=== PATIENT | female | born 1975 | race Caucasian/White ===

== ENCOUNTER 2018-07-15 18:08 | Emergency (ER) | payer SELFPAY | END 2018-07-15 20:05 | disposition left against medical advice (07) | LOC: FTE 20:05 | DX: Z53.21 Procedure and treatment not carried out due to patient leaving prior to being seen by health care provider (principal) ==

== ENCOUNTER 2018-09-11 05:51 | Inpatient (IN) | payer BC ==
[2018-09-11] MEDS ORDERED: MIDAZOLAM 1 MG/ML 2 ML INJ (07:03)
[2018-09-11] MEDS ORDERED: PROPOFOL 20 ML (07:03)
[2018-09-11] MEDS ORDERED: ROCURONIUM 50 MG INJ (07:03)
[2018-09-11] MEDS ORDERED: FENTAnyl 50 MCG/ML VIAL (07:04)
[2018-09-11] MEDS ORDERED: LIDOCAINE 1% (MDV) 20 ML INJ (07:04)
[2018-09-11] MEDS ORDERED: morphine SULFATE/PF (10 MG/10 ML) INJ (07:04)
[2018-09-11] MEDS ORDERED: CEFAZOLIN 1 GM INJ (07:32)
[2018-09-11] MEDS ORDERED: ONDANSETRON 4 MG INJ (07:32)
[2018-09-11] MEDS ORDERED: DEXAMETHASONE 4 MG/ML 5 ML INJ (07:32)
[2018-09-11] MEDS ORDERED: ROPIVACAINE 0.5 % 30 ML VIAL (08:34)
[2018-09-11] MEDS ORDERED: KETOROLAC 30 MG INJ ×2 (08:52→09:36)
[2018-09-11] MEDS ORDERED: GLYCOPYRROLATE 0.4 MG INJ (09:01)
[2018-09-11] MEDS ORDERED: NEOSTIGMINE 3 MG/3 ML SYRINGE (09:01)
[2018-09-11] MEDS ORDERED: HYDROmorphONE 1 MG/5 ML IV SYRINGE IV ×4 (09:20→10:30)
[2018-09-11] MEDS ORDERED: ONDANSETRON 4 MG INJ IV (09:30)
[2018-09-11] MEDS ORDERED: HYDROmorphONE 0.5 MG/0.5 ML SYG IV (09:30)
[2018-09-11] MEDS ORDERED: NALOXONE (0.4 MG/ML) INJ IV (09:30)
[2018-09-11] MEDS: KETOROLAC 30 MG INJ IV ×2 (09:49→09:53)
[2018-09-11] MEDS: HYDROmorphONE 0.5 MG/0.5 ML SYG IV ×2 (09:53→19:00)
[2018-09-11] MEDS: HYDROmorphONE 1 MG/ML SYG IV (10:14)
[2018-09-11] MEDS: HYDROCODONE/APAP (5/325) TAB PO ×2 (12:54→20:39)
[2018-09-11] MEDS: LACTATED RINGER'S 1,000 ML IV ×2 (14:15→20:41)
[2018-09-11] MEDS: DIPHENHYDRAMINE 50 MG INJ IV ×2 (17:01→23:00)
[2018-09-12] MEDS: HYDROCODONE/APAP (5/325) TAB PO ×2 (01:38→22:45)
[2018-09-12] MEDS: LACTATED RINGER'S 1,000 ML IV ×3 (05:07→22:45)
[2018-09-12] MEDS: MAGNESIUM HYDROXIDE 30ML CUP PO ×3 (05:07→20:47)
[2018-09-12] MEDS: BISACODYL 10 MG SUPP PR ×4 (05:07→20:52)
[2018-09-12 05:45] LABS: ADD MAN DIFF? NO
[2018-09-12 05:55] LABS: WHITE BLOOD COUNT 8.6 10^3/ul (4.8-10.8)
[2018-09-12 05:55] LABS: BASOPHILS % 0.1 % (0.0-2.0); HEMATOCRIT 30.3 % (37.0-47.0); HEMOGLOBIN 10.2 g/dl (12.0-16.0); LYMPHOCYTES % 11.9 % (15.0-51.0); MEAN CORPUSCULAR HEMOGLOBIN 30.4 pg (29.0-33.0); MEAN CORPUSCULAR HGB CONC 33.7 g/dl (32.0-37.0); MEAN CORPUSCULAR VOLUME 90.4 fl (82.0-101.0); MEAN PLATELET VOLUME 10.1 fl (7.4-10.4); MONOCYTE # 0.7 10^3/ul (0.3-0.9); MONOCYTES % 7.9 % (0.0-11.0); NEUTROPHIL # 6.8 10^3/ul (1.6-7.5); NEUTROPHILS % 79.7 % (39.0-77.0); PLATELET COUNT 176 10^3/UL (140-415); RED BLOOD COUNT 3.35 10^6/ul (4.20-5.40); RED CELL DISTRIBUTION WIDTH 12.2 % (11.5-14.5)
[2018-09-12 06:16] LABS: ALANINE AMINOTRANSFERASE 17 IU/L (13-69); ALBUMIN 3.4 g/dl (3.3-4.9); ALKALINE PHOSPHATASE 40 IU/L (42-121); ANION GAP 9 (5-13); ASPARTATE AMINO TRANSFERASE 18 IU/L (15-46); BILIRUBIN,INDIRECT 0.4 mg/dl (0-1.1); BILIRUBIN,TOTAL 0.4 mg/dl (0.2-1.3); BLOOD UREA NITROGEN 16 mg/dl (7-20); CALCIUM 9.2 mg/dl (8.4-10.2); CARBON DIOXIDE 27 mmol/L (21-31); CHLORIDE 102 mmol/L (97-110); CREATININE 0.64 mg/dl (0.44-1.00); Estimated GFR > 60 mL/min (>60); GLUCOSE 110 mg/dl (70-220); POTASSIUM 4.4 mmol/L (3.5-5.1); SODIUM 138 mmol/L (135-144)
[2018-09-12] MEDS: HYDROmorphONE 0.5 MG/0.5 ML SYG IV (07:48)
[2018-09-12] MEDS: ONDANSETRON 4 MG INJ IV (07:48)
[2018-09-12] MEDS: IBUPROFEN 800 MG TAB PO (16:40)
[2018-09-12] MEDS: PANTOPRAZOLE 40 MG INJ IV (17:45)
[2018-09-13] MEDS: OXYCODONE/ACETAMINOPHEN (10/325) TAB PO ×5 (00:50→23:14)
[2018-09-13] MEDS: ONDANSETRON 4 MG INJ IV ×2 (00:53→19:14)
[2018-09-13] MEDS ORDERED: OXYCODONE/ACETAMINOPHEN (10/325) TAB PO (01:00)
[2018-09-13] MEDS: HYDROmorphONE 0.5 MG/0.5 ML SYG IV ×5 (02:15→11:51)
[2018-09-13] MEDS: PANTOPRAZOLE 40 MG INJ IV ×2 (05:29→18:10)
[2018-09-13] MEDS: BISACODYL 10 MG SUPP PR ×3 (05:29→20:33)
[2018-09-13] MEDS: MAGNESIUM HYDROXIDE 30ML CUP PO ×3 (05:29→20:32)
[2018-09-13 05:45] LABS: ADD MAN DIFF? NO
[2018-09-13 06:03] LABS: BASOPHILS % 0.2 % (0.0-2.0); EOSINOPHILS % 0.3 % (0.0-7.0); HEMATOCRIT 31.2 % (37.0-47.0); HEMOGLOBIN 10.4 g/dl (12.0-16.0); LYMPHOCYTES # 1.5 10^3/ul (0.8-2.9); LYMPHOCYTES % 25.8 % (15.0-51.0); MEAN CORPUSCULAR HEMOGLOBIN 30.4 pg (29.0-33.0); MEAN CORPUSCULAR HGB CONC 33.3 g/dl (32.0-37.0); MEAN CORPUSCULAR VOLUME 91.2 fl (82.0-101.0); MEAN PLATELET VOLUME 9.9 fl (7.4-10.4); MONOCYTE # 0.4 10^3/ul (0.3-0.9); MONOCYTES % 5.9 % (0.0-11.0); NEUTROPHILS % 67.5 % (39.0-77.0); PLATELET COUNT 171 10^3/UL (140-415); RED BLOOD COUNT 3.42 10^6/ul (4.20-5.40); RED CELL DISTRIBUTION WIDTH 12.5 % (11.5-14.5)
[2018-09-13 06:37] LABS: ALANINE AMINOTRANSFERASE 17 IU/L (13-69); ALBUMIN 3.4 g/dl (3.3-4.9); ALBUMIN/GLOBULIN RATIO 1.21; ALKALINE PHOSPHATASE 40 IU/L (42-121); ANION GAP 2 (5-13); ASPARTATE AMINO TRANSFERASE 18 IU/L (15-46); BILIRUBIN,INDIRECT 0.5 mg/dl (0-1.1); BILIRUBIN,TOTAL 0.5 mg/dl (0.2-1.3); BLOOD UREA NITROGEN 10 mg/dl (7-20); CALCIUM 8.4 mg/dl (8.4-10.2); CARBON DIOXIDE 30 mmol/L (21-31); CHLORIDE 107 mmol/L (97-110); CREATININE 0.67 mg/dl (0.44-1.00); Estimated GFR > 60 mL/min (>60); GLUCOSE 93 mg/dl (70-220); SODIUM 139 mmol/L (135-144); TOTAL PROTEIN 6.2 g/dl (6.1-8.1)
[2018-09-13] MEDS: LACTATED RINGER'S 1,000 ML IV ×3 (06:49→23:10)
[2018-09-13] MEDS: IBUPROFEN 800 MG TAB PO (13:17)
[2018-09-13] MEDS: DIPHENHYDRAMINE 50 MG INJ IV (20:34)
[2018-09-14] MEDS: NA PHOSPHATE/BIPHOS 133 ML ENEMA PR ×3 (00:57→20:38)
[2018-09-14] MEDS: OXYCODONE/ACETAMINOPHEN (10/325) TAB PO ×3 (04:44→16:15)
[2018-09-14] MEDS: PANTOPRAZOLE 40 MG INJ IV ×2 (05:52→16:16)
[2018-09-14] MEDS: MAGNESIUM HYDROXIDE 30ML CUP PO ×2 (05:52→16:16)
[2018-09-14] MEDS: LACTATED RINGER'S 1,000 ML IV ×3 (06:01→20:39)
[2018-09-14 08:22] LABS: ADD MAN DIFF? NO
[2018-09-14 08:26] LABS: BASOPHILS % 0.5 % (0.0-2.0); EOSINOPHILS # 0.1 10^3/ul (0.0-0.5); EOSINOPHILS % 1.9 % (0.0-7.0); HEMATOCRIT 29.1 % (37.0-47.0); HEMOGLOBIN 9.7 g/dl (12.0-16.0); LYMPHOCYTES # 1.9 10^3/ul (0.8-2.9); LYMPHOCYTES % 45.7 % (15.0-51.0); MEAN CORPUSCULAR HEMOGLOBIN 30.3 pg (29.0-33.0); MEAN CORPUSCULAR HGB CONC 33.3 g/dl (32.0-37.0); MEAN CORPUSCULAR VOLUME 90.9 fl (82.0-101.0); MEAN PLATELET VOLUME 9.6 fl (7.4-10.4); MONOCYTE # 0.3 10^3/ul (0.3-0.9); MONOCYTES % 7.5 % (0.0-11.0); NEUTROPHIL # 1.8 10^3/ul (1.6-7.5); NEUTROPHILS % 44.2 % (39.0-77.0); PLATELET COUNT 151 10^3/UL (140-415); RED CELL DISTRIBUTION WIDTH 12.4 % (11.5-14.5)
[2018-09-14 08:26] LABS: WHITE BLOOD COUNT 4.1 10^3/ul (4.8-10.8)
[2018-09-14] MEDS: ONDANSETRON 4 MG INJ IV ×3 (09:25→20:38)
[2018-09-14] MEDS ORDERED: ONDANSETRON 4 MG TAB PO (13:30)
[2018-09-14] MEDS: BISACODYL 10 MG SUPP PR (16:16)
== END 2018-09-14 22:43 | disposition home or self-care (01) | DRG 743 ==
LOC: REC 05:51 → PP2 10:34
PROVIDERS: Obstetrics & Gynecology
PROC: 0UT90ZL Resection of Uterus, Supracervical, Open Approach (ICD-10-PCS; principal; 2018-09-11 07:30)
PROC: 0UT70ZZ Resection of Bilateral Fallopian Tubes, Open Approach (ICD-10-PCS; 2018-09-11 07:30)
PROC: 0UB00ZZ Excision of Right Ovary, Open Approach (ICD-10-PCS; 2018-09-11 07:30)
PROC: 0USG0ZZ Reposition Vagina, Open Approach (ICD-10-PCS; 2018-09-11 07:30)
PROC: 0UQG0ZZ Repair Vagina, Open Approach (ICD-10-PCS; 2018-09-11 07:30)
DX: D25.1 Intramural leiomyoma of uterus (principal); D25.0 Submucous leiomyoma of uterus; N80.0 Endometriosis of uterus; N88.8 Other specified noninflammatory disorders of cervix uteri; N81.89 Other female genital prolapse; N92.0 Excessive and frequent menstruation with regular cycle; N83.201 Unspecified ovarian cyst, right side; E11.9 Type 2 diabetes mellitus without complications; I10 Essential (primary) hypertension; R11.0 Nausea
CPT/HCPCS: 80053; 84702; 84703; 85025; 86850; 86900; 86901; 87086; 88305